=== PATIENT | male | born 1950 | race Caucasian/White ===

== ENCOUNTER 2023-08-05 12:50 | Emergency (ER) | payer MEDICARE ==
[~2023-08-05] VITALS: Ht 175.3 cm; Wt 93.0 kg
[2023-08-05 14:30] LABS: BASOPHILS % (AUTO) 0.6 % (0-1); EOSINOPHILS # (AUTO) 0.1 X10'3 (0-0.9); EOSINOPHILS % (AUTO) 1.2 % (0-6); HEMATOCRIT 39.4 % (42.0-52.0); LYMPHOCYTES # (AUTO) 1.6 X10'3 (1.1-4.8); LYMPHOCYTES % (AUTO) 30.8 % (21-51); MEAN CORPUSCULAR HEMOGLOBIN 30.8 PG (27.0-31.0); MEAN CORPUSCULAR HGB CONC 32.9 g/dL (33.0-36.5); MEAN CORPUSCULAR VOLUME 93.6 FL (78-98); MEAN PLATELET VOLUME 8.5 FL (7.4-10.4); MONOCYTES # (AUTO) 0.5 X10'3 (0-0.9); MONOCYTES % (AUTO) 9.7 % (2-12); NEUTROPHILS % (AUTO) 57.7 % (42-75); PLATELET COUNT 224 X10'3 (140-440); RED BLOOD COUNT 4.21 X10'6 (4.70-6.10); RED CELL DISTRIBUTION WIDTH 13.9 % (11.5-14.5); WHITE BLOOD COUNT 5.1 X10'3 (4.5-11.0)
[2023-08-05 14:40] LABS: APTT 26 SECONDS (22-32); PROTHROMBIN TIME 10.6 SECONDS (9.0-12.0)
[2023-08-05 14:44] LABS: ALANINE AMINOTRANSFERASE 25 U/L (12-78); ALBUMIN 4.3 G/DL (3.4-5.0); ALBUMIN/GLOBULIN RATIO 1.1 (1.1-1.5); ALKALINE PHOSPHATASE 113 IU/L (46-116); ANION GAP 8 (8-16); ASPARTATE AMINO TRANSFERASE 9 U/L (10-37); BILIRUBIN,TOTAL 0.4 MG/DL (0.1-1.0); BLOOD UREA NITROGEN 28 MG/DL (7-18); BUN/CREATININE RATIO 18.8 (10.0-20.0); CALCIUM 9.5 MG/DL (8.5-10.1); CHLORIDE 104 MMOL/L (99-107); CREATININE 1.49 MG/DL (0.60-1.10); GLUCOSE 150 MG/DL (70-104); LIPASE 33 U/L (16-77); POTASSIUM 5.2 MMOL/L (3.5-5.1); SODIUM 141 MMOL/L (135-145); TOTAL CARBON DIOXIDE 29.4 MMOL/L (24-32); TOTAL PROTEIN 8.1 G/DL (6.4-8.2); eCRCL 46 ML/MIN; eGFR 47 ML/MIN
[2023-08-05 16:28] VITALS: BP 160/99; TEMP 98.1; O2SAT 98
[2023-08-05] MEDS ORDERED: DOCU-149 PO (17:31)
[2023-08-05 17:37] VITALS: PULSE 73; RESP 16
== END 2023-08-05 17:41 | disposition home or self-care (01) ==
LOC: ER 12:51
DX: K59.00 Constipation, unspecified (principal); E86.0 Dehydration; E11.22 Type 2 diabetes mellitus with diabetic chronic kidney disease; N18.9 Chronic kidney disease, unspecified
CPT/HCPCS: 36415; 74176; 80053; 83690; 85025; 85610; 85730; 99284

== ENCOUNTER 2023-08-07 19:53 | Emergency (ER) | payer MEDICARE ==
[~2023-08-07] VITALS: Ht 172.7 cm; Wt 96.4 kg
[~2023-08-07 19:53] MED LIST: DOCU-149 PO
[2023-08-07 20:01] VITALS: BP 180/103; PULSE 84; RESP 14; TEMP 98.5; O2SAT 100
[2023-08-07] MEDS: methylnaltrexone br 12mg/0.6ml inj***SubQ only SQ ONE (21:05)
[2023-08-07] MEDS ORDERED: GOLYS PO (21:28)
== END 2023-08-07 21:40 | disposition home or self-care (01) ==
LOC: ER 19:54
DX: K59.00 Constipation, unspecified (principal); E11.22 Type 2 diabetes mellitus with diabetic chronic kidney disease; N18.9 Chronic kidney disease, unspecified; F11.988 Opioid use, unspecified with other opioid-induced disorder
CPT/HCPCS: 96372; 99283; J2212